=== PATIENT | male | born 1960 | race African-American/Black ===

== ENCOUNTER 2016-04-30 11:30 | Outpatient (CLI) ==
[2016-04-30 13:04] LABS: ALBUMIN 3.5 g/dL (3.4-5.0); ALBUMIN/GLOBULIN RATIO 0.97; ANION GAP 12.2; BILIRUBIN,TOTAL 0.28 mg/dL (0.00-1.20); BUN/CREATININE RATIO 14.84; CALCIUM 9.2 mg/dL (8.2-10.2); CHOL/HDL RATIO 3.3 (4.5-6.4); CREATININE 1.28 mg/dL (0.60-1.10); POTASSIUM 4.2 mmol/L (3.5-5.1); TOTAL PROTEIN 7.1 g/dL (6.4-8.2)
== END 2016-04-30 11:31 | disposition home or self-care (01) ==
LOC: LAB 11:30
PROVIDERS: ATTEND Nurse Practitioner Family
DX: E78.5 Hyperlipidemia, unspecified (principal)
CPT/HCPCS: 36415; 80053; 80061

== ENCOUNTER 2016-05-02 09:25 | Outpatient (CLI) | END 2016-05-02 09:26 | disposition home or self-care (01) | LOC: CAR 09:25 | PROVIDERS: ATTEND Nurse Practitioner Family | DX: I49.9 Cardiac arrhythmia, unspecified (principal) | CPT/HCPCS: 93005; 93010 ==

== ENCOUNTER 2016-11-05 13:00 | Outpatient (CLI) ==
[2016-11-05 13:07] LABS: BASOPHILS % (AUTO) 0.4 % (0.0-3.0); EOSINOPHILS # (AUTO) 0.1 K/ul (0.0-0.7); EOSINOPHILS % (AUTO) 1.8 % (0.0-7.0); HEMATOCRIT 44.2 % (42.0-52.0); HEMOGLOBIN 15.2 g/dl (14.0-18.0); IMMATURE GRANULOCYTE % (AUTO) 0.2 % (0.0-5.0); LYMPHOCYTES # (AUTO) 2.5 K/uL (0.60-3.4); LYMPHOCYTES % (AUTO) 54.3 (10.0-50.0); MEAN CORPUSCULAR HEMOGLOBIN 28.4 pg (27.0-31.0); MEAN CORPUSCULAR HGB CONC 34.4 (31.8-35.4); MEAN CORPUSCULAR VOLUME 82.5 fl (80.0-94.0); MONOCYTES # (AUTO) 0.5 K/uL (0.4-2.0); MONOCYTES % (AUTO) 10.2 (0-10); NEUTROPHILS # (AUTO) 1.5 K/ul (2.0-6.9); NEUTROPHILS % (AUTO) 33.1; PLATELET COUNT 169 10^3/uL (140-440); RED BLOOD COUNT 5.36 10^6/ul (4.70-6.10); WHITE BLOOD COUNT 4.51 K/ul (4.2-10.2)
[2016-11-05 13:55] LABS: ALBUMIN 3.6 g/dL (3.4-5.0); ALBUMIN/GLOBULIN RATIO 0.9; ANION GAP 14.9; BILIRUBIN,TOTAL 0.35 mg/dL (0.00-1.20); BUN/CREATININE RATIO 16.9; CALCIUM 9.9 mg/dL (8.2-10.2); CHOL/HDL RATIO 4.1 (4.5-6.4); CREATININE 1.42 mg/dL (0.60-1.10); POTASSIUM 3.9 mmol/L (3.5-5.1); TOTAL PROTEIN 7.6 g/dL (6.4-8.2)
== END 2016-11-05 13:01 | disposition home or self-care (01) ==
LOC: LAB 13:00
PROVIDERS: ATTEND Nurse Practitioner Family
DX: I49.9 Cardiac arrhythmia, unspecified (principal); E78.5 Hyperlipidemia, unspecified; Z12.5 Encounter for screening for malignant neoplasm of prostate
CPT/HCPCS: 36415; 80053; 80061; 84443; 85025

== ENCOUNTER 2017-05-05 08:46 | Outpatient (CLI) | END 2017-05-05 08:47 | disposition home or self-care (01) | LOC: RHC-LAB 08:46 | PROVIDERS: ATTEND Nurse Practitioner Family | DX: E78.5 Hyperlipidemia, unspecified (principal) | CPT/HCPCS: 36415; 80053; 80061; 84443; 85025 ==

== ENCOUNTER 2017-05-29 09:58 | Outpatient (CLI) | END 2017-05-29 09:59 | disposition home or self-care (01) | LOC: LAB 09:58 | PROVIDERS: ATTEND Internal Medicine | DX: D72.819 Decreased white blood cell count, unspecified (principal) | CPT/HCPCS: 36415; 85025 ==

== ENCOUNTER 2017-06-01 07:33 | Outpatient (CLI) | END 2017-06-01 07:34 | disposition home or self-care (01) | LOC: LAB 07:33 | PROVIDERS: ATTEND Internal Medicine | DX: D72.819 Decreased white blood cell count, unspecified (principal) | CPT/HCPCS: 36415; 85007; 85025 ==

== ENCOUNTER 2017-06-03 07:34 | Outpatient (CLI) | END 2017-06-03 07:35 | disposition home or self-care (01) | LOC: LAB 07:34 | PROVIDERS: ATTEND Internal Medicine | DX: D72.819 Decreased white blood cell count, unspecified (principal) | CPT/HCPCS: 36415; 85025 ==

== ENCOUNTER 2017-06-05 07:31 | Outpatient (CLI) | END 2017-06-05 07:32 | disposition home or self-care (01) | LOC: LAB 07:31 | PROVIDERS: ATTEND Internal Medicine | DX: D72.819 Decreased white blood cell count, unspecified (principal) | CPT/HCPCS: 36415; 85025 ==

== ENCOUNTER 2017-06-08 07:33 | Outpatient (CLI) | END 2017-06-08 07:34 | disposition home or self-care (01) | LOC: LAB 07:33 | PROVIDERS: ATTEND Internal Medicine | DX: D72.819 Decreased white blood cell count, unspecified (principal) | CPT/HCPCS: 36415; 85025 ==

== ENCOUNTER 2017-06-09 07:42 | Outpatient (CLI) | END 2017-06-09 07:43 | disposition home or self-care (01) | LOC: LAB 07:42 | PROVIDERS: ATTEND Internal Medicine | DX: D72.819 Decreased white blood cell count, unspecified (principal) | CPT/HCPCS: 36415; 85025 ==

== ENCOUNTER 2017-06-13 07:18 | Outpatient (CLI) | END 2017-06-13 07:19 | disposition home or self-care (01) | LOC: LAB 07:18 | PROVIDERS: ATTEND Internal Medicine | DX: D72.819 Decreased white blood cell count, unspecified (principal) | CPT/HCPCS: 36415; 85025 ==

== ENCOUNTER 2017-06-15 07:31 | Outpatient (CLI) | END 2017-06-15 07:32 | disposition home or self-care (01) | LOC: LAB 07:31 | PROVIDERS: ATTEND Internal Medicine | DX: D72.819 Decreased white blood cell count, unspecified (principal) | CPT/HCPCS: 36415; 85025 ==

== ENCOUNTER 2017-06-17 07:40 | Outpatient (CLI) | END 2017-06-17 07:41 | disposition home or self-care (01) | LOC: LAB 07:40 | PROVIDERS: ATTEND Internal Medicine | DX: D72.819 Decreased white blood cell count, unspecified (principal) | CPT/HCPCS: 36415; 85025 ==

== ENCOUNTER 2017-06-19 07:24 | Outpatient (CLI) | END 2017-06-19 07:25 | disposition home or self-care (01) | LOC: LAB 07:24 | PROVIDERS: ATTEND Internal Medicine | DX: D72.819 Decreased white blood cell count, unspecified (principal) | CPT/HCPCS: 36415; 85025 ==

== ENCOUNTER 2017-06-22 07:33 | Outpatient (CLI) | END 2017-06-22 07:34 | disposition home or self-care (01) | LOC: LAB 07:33 | PROVIDERS: ATTEND Internal Medicine | DX: D72.819 Decreased white blood cell count, unspecified (principal) | CPT/HCPCS: 36415; 85025 ==

== ENCOUNTER 2017-06-24 07:36 | Outpatient (CLI) | END 2017-06-24 07:37 | disposition home or self-care (01) | LOC: LAB 07:36 | PROVIDERS: ATTEND Internal Medicine | DX: D72.819 Decreased white blood cell count, unspecified (principal) | CPT/HCPCS: 36415; 85025 ==

== ENCOUNTER 2017-06-26 07:37 | Outpatient (CLI) | END 2017-06-26 07:38 | disposition home or self-care (01) | LOC: LAB 07:37 | PROVIDERS: ATTEND Internal Medicine | DX: D72.819 Decreased white blood cell count, unspecified (principal) | CPT/HCPCS: 36415; 85025 ==

== ENCOUNTER 2017-06-29 07:29 | Outpatient (CLI) | END 2017-06-29 07:30 | disposition home or self-care (01) | LOC: LAB 07:29 | PROVIDERS: ATTEND Internal Medicine | DX: D72.819 Decreased white blood cell count, unspecified (principal) | CPT/HCPCS: 36415; 85025 ==

== ENCOUNTER 2017-07-01 06:54 | Outpatient (CLI) | END 2017-07-01 06:55 | disposition home or self-care (01) | LOC: LAB 06:54 | PROVIDERS: ATTEND Internal Medicine | DX: D72.819 Decreased white blood cell count, unspecified (principal) | CPT/HCPCS: 36415; 85025 ==

== ENCOUNTER 2017-07-03 07:08 | Outpatient (CLI) | END 2017-07-03 07:09 | disposition home or self-care (01) | LOC: LAB 07:08 | PROVIDERS: ATTEND Internal Medicine | DX: D72.819 Decreased white blood cell count, unspecified (principal) | CPT/HCPCS: 36415; 85025 ==

== ENCOUNTER 2017-07-06 07:14 | Outpatient (CLI) | END 2017-07-06 07:15 | disposition home or self-care (01) | LOC: LAB 07:14 | PROVIDERS: ATTEND Internal Medicine | DX: D72.819 Decreased white blood cell count, unspecified (principal) | CPT/HCPCS: 36415; 85025 ==

== ENCOUNTER 2017-07-08 06:58 | Outpatient (CLI) | END 2017-07-08 06:59 | disposition home or self-care (01) | LOC: LAB 06:58 | PROVIDERS: ATTEND Internal Medicine | DX: D72.819 Decreased white blood cell count, unspecified (principal) | CPT/HCPCS: 36415; 85025 ==

== ENCOUNTER 2017-07-10 06:47 | Outpatient (CLI) | END 2017-07-10 06:48 | disposition home or self-care (01) | LOC: LAB 06:47 | PROVIDERS: ATTEND Internal Medicine | DX: D72.819 Decreased white blood cell count, unspecified (principal) | CPT/HCPCS: 36415; 85025 ==

== ENCOUNTER 2017-07-13 06:54 | Outpatient (CLI) ==
[2017-07-13 21:21] VITALS: BMI 29.7
== END 2017-07-13 06:55 | disposition home or self-care (01) ==
LOC: LAB 06:54
PROVIDERS: ATTEND Internal Medicine
DX: D72.819 Decreased white blood cell count, unspecified (principal)
CPT/HCPCS: 36415; 85025

== ENCOUNTER 2017-07-13 17:16 | Observation (INO) ==
--- NOTE | 2017-07-13 17:58 | ED.PDOC ---
General ED Provider: Dr. NESTOR GIORDANO Chief Complaint: Palpitations Stated Complaint: palpitation Time Seen by Physician: 17:18 Mode of Arrival: Walk-In Information Source: Patient Exam Limitations: No limitations Primary Care Provider: STIVEN RENTERIA Nursing and Triage Documentation Reviewed and Agree: Yes Reviewed sepsis parameters & appropriate labs ordered?: Yes System Inflammatory Response Syndrome: Not Applicable Sepsis Protocol: For patient's 13 years and over: Temp is 96.8 and below OR 101 and greater Pulse >90 BPM Resp >20/minute Acutely Altered Mental Status Are patient's symptoms suggestive of a new infection, such as: -Pneumonia -Skin, Soft Tissue -Endocarditis -UTI -Bone, Joint Infection -Implantable Device -Acute Abdominal Infection -Wound Infection -Meningitis -Blood Stream Catheter Infection -Unknown System Inflammatory Response Syndrome: Not Applicable Cardiovascular Complaint Exam - Palpitations Complaint/Exam Onset/Duration: 2 hrs ago Symptoms Are: Resolved Timing: Intermittent Initial Severity: Mild Current Severity: None Character: Reports: Irregular Aggravating: Reports: None Alleviating: Reports: None Associated Signs and Symptoms: Reports: Lightheadedness Related History: Similar episode Related Surgical History: Reports: None Pulmonary Embolism Risk Factors: Reports: None Atrial Fibrillation Risk Factors: Reports: None Thyroid Exam: Normal Differential Diagnoses: CAD, Paroxysmal SVT Quality Indicators for AMI: EKG in 10min. Quality Indicators for Cardiac Chest Pain: EKG in 10min. Quality Indicator For Non-Traumatic Chest Pain/Syncope: EKG Performed Review of Systems - Review Of Systems Constitutional: Reports: No symptoms Eyes: Reports: No symptoms Ears, Nose, Mouth, Throat: Reports: No symptoms Respiratory: Reports: No symptoms Cardiac: Reports: Palpitations GI: Reports: No symptoms : Reports: No symptoms Musculoskeletal: Reports: No symptoms Skin: Reports: No symptoms Neurological: Reports: No symptoms Endocrine: Reports: No symptoms Hematologic/Lymphatic: Reports: No symptoms All Other Systems: Reviewed and Negative Past Medical History - Past Medical History Previously Healthy: Yes Endocrine: Reports: Dyslipidemia Cardiovascular: Reports: None Respiratory: Reports: None Hematological: Reports: None Gastrointestinal: Reports: None Genitourinary: Reports: None Neuro/Psych: Reports: None Musculoskeletal: Reports: None Cancer: Reports: None - Surgical History General Surgical History: Reports: None - Family History Family History: Reports: None - Social History Smoking Status: Never smoker Hx Substance Use: No Alcohol Screening: Occasionally Physical Exam - Physical Exam Appearance: Well-appearing, No pain distress, Well-nourished Eyes: DANNI, EOMI, Conjunctiva clear ENT: Ears normal, Nose normal, Oropharynx normal Respiratory: Airway patent, Breath sounds clear, Breath sounds equal, Respirations nonlabored Cardiovascular: RRR, Pulses normal, No rub, No murmur GI/: Soft, Nontender, No masses, Bowel sounds normal, No Organomegaly Musculoskeletal: Normal strength, ROM intact, No edema, No calf tenderness Skin: Warm, Dry, Normal color Neurological: Sensation intact, Motor intact, Reflexes intact, Cranial nerves intact, Alert, Oriented Psychiatric: Affect appropriate, Mood appropriate Interpretation - Landmen Rate: Normal Ectopy: None, PACs - EKG Interpretation Rate: Normal Rhythm: Sinus Ectopy: PACs Re-Evaluation - Re-Evaluation Time of Re-Evaluation: 18:32 (no chest pain) Status: Improved Vital Signs Stable: Yes Pain Level: 0 Appearance: NAD Lungs: Clear Skin: Warm and Dry Neuro: Alert and Oriented X3 CV: RRR Physician Notification - Case Discussed Physician Notified: pmd Time of Notification: 19:00 Critical Care Note - Critical Care Note Total Time (mins): 0 Course - Course Hematology/Chemistry: 07/14/17 02:17 07/14/17 02:17 Orders, Labs, Meds: Lab Review 07/13/17 07/13/17 07/13/17 17:48 17:48 17:48 WBC 4.95 RBC 4.71 Hgb 13.2 L Hct 38.8 L MCV 82.4 MCH 28.0 MCHC 34.0 RDW Coeff of Ramírez 13.2 Plt Count 151 Immature Gran % (Auto) 0.2 Neut % (Auto) 46.1 Lymph % (Auto) 37.4 Preble % (Auto) 14.7 H Eos % (Auto) 1.4 Baso % (Auto) 0.2 Immature Gran # (Auto) 0.0 Neut # (Auto) 2.3 Lymph # (Auto) 1.9 Preble # (Auto) 0.7 Eos # (Auto) 0.1 Baso # (Auto) 0.0 PT 9.6 INR 0.96 APTT 25.2 Sodium 142 Potassium 3.8 Chloride 110 H Carbon Dioxide 21 Anion Gap 14.8 BUN 23 H Creatinine 1.33 H Estimated GFR (MDRD) 67.00 BUN/Creatinine Ratio 17.29 Glucose 88 Calcium 9.2 Total Bilirubin 0.5 AST 29 ALT 19 Alkaline Phosphatase 52 Total Creatine Kinase 691 CK-MB (CK-2) 6.6 H* CK-MB (CK-2) % 0.85083 Troponin I < 0.0100 Total Protein 7.1 Albumin 3.5 Globulin 3.6 Albumin/Globulin Ratio 0.97 TSH 1.142 Free T4 0.85 Orders Category Date Time Status ADMIT OBSERVATION [PLACE PATIENT OBSERVATION] .TO ADMISSION 07/13/17 19:08 Active MEDSURG (MONITORED BED) ECHOCARDIOGRAM 2D-M MODE Routine CARDIO 07/14/17 20:07 Completed EKG-(ED ONLY) Stat CARDIO 07/13/17 17:36 Completed OXYGEN Routine CARDIO 07/13/17 20:06 Completed STRESS ECHO Routine CARDIO 07/14/17 20:07 Completed ACTIVITY .Early Mobilization for VTE Prevention CARE 07/13/17 20:06 Active INTAKE & OUTPUT Q8HR CARE 07/13/17 20:06 Active TELEMETRY MONITORING TELE CARE 07/13/17 19:09 Active VITAL SIGNS Q4HR CARE 07/13/17 20:06 Active CARDIAC DIET DIETARY 07/13/17 Breakfast Completed ED IV/MEDIPORT/POWERPORT .ONCE EMERGENCY 07/13/17 17:38 Active CBC W/ AUTO DIFF DAILY@0600 LAB 07/14/17 02:17 Completed CBC W/ AUTO DIFF Stat LAB 07/13/17 17:48 Completed COMPREHENSIVE METABOLIC PANEL DAILY@0600 LAB 07/14/17 02:17 Completed COMPREHENSIVE METABOLIC PANEL Stat LAB 07/13/17 17:48 Completed CREATINE KINASE Q8H LAB 07/14/17 02:17 Completed CREATINE KINASE Q8H LAB 07/14/17 10:00 Completed CREATINE KINASE Stat LAB 07/13/17 17:48 Completed FREE T4 (FREE THYROXINE) Stat LAB 07/13/17 17:48 Completed PARTIAL THROMBOPLASTIN TIME Stat LAB 07/13/17 17:48 Completed PT WITH INR Stat LAB 07/13/17 17:48 Completed THYROID STIMULATING HORMONE Stat LAB 07/13/17 17:48 Completed TROPONIN I Q8H LAB 07/14/17 02:17 Completed TROPONIN I Q8H LAB 07/14/17 10:00 Completed TROPONIN I Stat LAB 07/13/17 17:48 Completed 0.9 % Sodium Chloride [Saline Flush] MEDS 07/13/17 17:37 Discontinued 1 syr IVF PRN PRN Acetaminophen [Tylenol] MEDS 07/13/17 20:06 Discontinued 650 mg PO Q4H PRN Amoxicillin/Potassium Clav [Augmentin 500-125 mg Tab] MEDS 07/13/17 21:00 Discontinued DOSE tab PO BID Atorvastatin Calcium [Lipitor] MEDS 07/14/17 09:00 Discontinued 10 mg PO DAILY Clindamycin HCl [Clindamycin HCl] MEDS 07/13/17 21:00 Discontinued 300 mg PO TID RESUSCITATION STATUS Routine OTHERS 07/13/17 20:06 Ordered CHEST, 1V AP ONLY Stat RADS 07/13/17 17:37 Completed Medications Discontinued Medications Generic Name Dose Route Start Last Admin Trade Name Freq PRN Reason Stop Dose Admin Acetaminophen 650 mg 07/13/17 20:06 Tylenol PO Q4H PRN Mild Pain Amoxicillin/Clavulanate Potassium tab 07/13/17 21:00 Augmentin 500-125 Mg Tab PO BID ANA MARIA Amoxicillin/Clavulanate Potassium 500 tab 07/13/17 22:00 07/13/17 22:05 Augmentin 500-125 Mg Tab PO Not Given BID ANA MARIA Amoxicillin/Clavulanate Potassium 1 tab 07/13/17 22:30 07/13/17 22:04 Augmentin 500-125 Mg Tab PO Not Given BID ANA MARIA Amoxicillin/Clavulanate Potassium 1 tab 07/14/17 08:00 07/14/17 08:57 Augmentin 500-125 Mg Tab PO 1 tab BIDWM ANA MARIA Administration Atorvastatin Calcium 10 mg 07/14/17 09:00 07/14/17 08:58 Lipitor PO 10 mg DAILY ANA MARIA Administration Clindamycin HCl 300 mg 07/14/17 09:00 07/14/17 16:26 Cleocin PO Not Given TID ANA MARIA Non-Formulary Medication 300 mg 07/13/17 21:00 07/13/17 22:02 Clindamycin Hcl [Clindamycin Hcl] PO Not Given TID ANA MARIA Sodium Chloride 1 syr 07/13/17 17:37 Saline Flush IVF PRN PRN To flush IV Sodium Chloride 1 syr 07/13/17 22:00 07/14/17 13:00 Saline Flush IVF Not Given Q8HR [facility] Vital Signs: Temp Pulse Resp BP Pulse Ox 05/14/18 18:06 84 24 135/102 H 97 07/13/17 17:16 98.6 F 82 20 124/81 96 HIGINIO Risk Score HIGINIO Risk Score: Risk Score Odds of by 30D 0 0.1 (0.1-0.2) 1 0.3 (0.2-0.3) 2 0.4 (0.3-0.5) 3 0.7 (0.6-0.9) 4 1.2 (1.0-1.5) 5 2.2 (1.9-2.6) 6 3.0 (2.5-3.6) 7 4.8 (3.8-6.1) Departure - Departure Time of Disposition: 19:00 Disposition: PLACED OBSERVATION Discharge Problem: Palpitations, Palpitations Condition: Good Pt referred to PMD for follow-up: Yes IPMP verified?: No Allergies/Adverse Reactions: Allergies No Known Allergies Allergy (Verified 07/13/17 17:24) Disposition Discussed With: Patient
[2017-07-13] MEDS ORDERED: TYLENOL PO PRN (20:06)
[2017-07-13] MEDS ORDERED: NON-FORMULARY MEDICATION (Clindamycin Hcl [Clindamycin Hcl] 300 MG) PO SCH (21:00)
[2017-07-13] MEDS ORDERED: AUGMENTIN 500-125 MG TAB PO SCH ×3 (21:00→22:30)
[2017-07-13 21:21] VITALS: BMI 29.7
[2017-07-13] MEDS ORDERED: AUGMENTIN 500-125 MG TAB ONE (21:55)
[2017-07-13] MEDS ORDERED: CLEOCIN ONE (21:55)
--- NOTE | 2017-07-14 07:40 | DI ---
EXAM: Chest one view, frontal view only. HISTORY: Chest pain. COMPARISON: None available. FINDINGS: The heart size is normal. There is no pulmonary vascular congestion. The lungs are clear . No pleural effusion or pneumothorax is seen. No acute osseous abnormality is identified. IMPRESSION: No acute cardiopulmonary process.
[2017-07-14] MEDS ORDERED: AUGMENTIN 500-125 MG TAB PO SCH (08:00)
[2017-07-14] MEDS: CLEOCIN PO SCH ×2 (08:57→16:26)
[2017-07-14] MEDS ORDERED: LIPITOR PO SCH (09:00)
--- NOTE | 2017-07-14 15:22 | STRESSECHO ---
Date of Test: 07/14/17 Ordering Physician: DR. MARY VALENZUELA Occupation:MAINTAINS Reason for Exam: PALPITATIONS, ABNORMAL EKG, HYPERLIPIDEMIA, PAC'S Smoking History: NO Height: 65" Weight: 189" Current Medications: LIPITOR Resting EKG: SINUS RHYTHM/NO ACUTE CHANGES/ PAC'S Target Heart Rate: 138 S-T SEGMENT STAGE MPH/GRADE HEART RATE BPM BLOOD PRESSURE MMHG RHYTHM +/- ELEVATION DEPRESSION SYMPTOMS,COMMENTS AT REST 71 144/92 SR X NONE 1 1.7/10% 105 140/60 SR X NONE 2 2.5/12% 123 140/80 SR X NONE 3 3.4/14% 4 4.2/16% 5 5.0/18% Immediately After 148 140/80 SR X FATIGUE Minutes Post Exercise 5:00 91 122/68 SR X NO COMMENTS Minutes Post Exercise DURATION OF EXERCISE: 7:04 MAXIMUM HEART RATE REACHED: 148 REASON FOR TERMINATION: FATIGUE 98% OXYGEN SATURATION WITH EXERCISE METS 10.0 INTERPRETATION: 1. NO EVIDENCE OF ISCHEMIA BY ST-T WAVE 2. NO CHEST PAIN OR CHEST DISCOMFORT 3. PAC'S AT REST/ LESS PAC'S TO NO PAC'S AT THE EXERCISE LEVEL ACHIEVED 4. BLOOD PRESSURE RESPONSE: NORMAL NORMAL LEFT VENTRICULAR CONTRACTILITY--RESTING AND POST EXERCISE MTDD
[2017-07-14 16:04] VITALS: BP 138/72; TEMP 98
--- NOTE | 2017-07-16 07:36 | ECHO2D ---
Date of Exam: 07/14/17 Ordering Physician: DR. MARY VALENZUELA Room #: [id number] Reason for Echo: PALPITATIONS, ABNORMAL EKG, HYPERLIPIDEMIA M-Mode Normal Adult Results LV Dimensions Normal Adult Results AoV Opening excursions >1.6 >1.6 LVEDD-base- 3.5-5.8 4.7 Ao root dimensions 2.0-3.7 3.2 LVESD-base- 3.1-4.6 L. Atrium dimensions 1.9-3.8 4.1 Post. Wall thickness 0.8-1.1 1.3 IV septum (thickness) 0.7-1.2 1.2 Post. Wall excursion 0.72-1.3 NORMAL Septal motion NORMAL Systolic motion R. Ventricular cavity 1.5-2.0 NORMAL LVEF 60% 53% Paradoxical septal wall motion NORMAL 2-D : 2-D M Mode Echocardiogram was performed using apical four chamber and left parasternal long and short axis views. Mitral, tricuspid and aortic valves appear to be normal. Contractility of the left ventricle seems to be normal, so is the cavity size. Enlarged left atrial cavity. Aortic root appears to be normal. There is no pericardial effusion. There is no thrombus noted in the left ventricular or left aortic cavity. No mitral valve prolapse noted. M-MODE: MV: NORMAL AV: NORMAL TV: NORMAL PV: CHAMBER SIZE: ENLARGED LEFT ATRIAL CAVITY WALL MOTION: NORMAL PERICARDIUM: NORMAL INTERPRETATION: 1. LEFT VENTRICULAR HYPERTROPHY WITH ENLARGED LEFT ATRIAL CAVITY (MILD) 2. NORMAL VALVES 3. NORMAL LEFT VENTRICULAR CONTRACTILITY MTDD
--- NOTE | 2017-07-16 07:40 | ECHOSTRESS ---
Date of Exam: 07/14/17 Ordering Physician: DR. MARY VALENZUELA Reason for Echo: PALPITATIONS, ABNORMAL EKG, HYPERLIPIDEMIA, STRESS TEST--NO ISCHEMIA M-Mode Normal Adult Results LV Dimensions Normal Adult Results AoV Opening excursions >1.6 LVEDD-base- 3.5-5.8 Ao root dimensions 2.0-3.7 LVESD-base- 3.1-4.6 L. Atrium dimensions 1.9-3.8 Post. Wall thickness 0.8-1.1 IV septum (thickness) 0.7-1.2 Post. Wall excursion 0.72-1.3 Septal motion Systolic motion R. Ventricular cavity 1.5-2.0 LVEF 60% Paradoxical septal wall motion 2-D: NORMAL LEFT VENTRICULAR CONTRACTILITY--RESTING AND POST EXERCISE M-MODE: MV: AV: TV: PV: CHAMBER SIZE: WALL MOTION: NORMAL LEFT VENTRICULAR CONTRACTILITY--RESTING AND POST EXERCISE PERICARDIUM: INTERPRETATION: 1. NORMAL LEFT VENTRICULAR CONTRACTILITY--RESTING AND POST EXERCISE MTDD
--- NOTE | 2017-08-27 15:08 | DS ---
DATE OF SERVICE: 07/14/17 FINAL DIAGNOSIS: 1. Chest pain noncardiac 2. Heart palpitation 3. Light headedness 4. Impetigo 5. Dyslipidemia 6. Infrequent beer use DISCHARGE INSTRUCTIONS: Discharge the patient home. MEDICATIONS AT DISCHARGE: Lipitor Clindamycin NEW PRESCRIPTIONS: Augmentin 500mg twice a day DIET INSTRUCTIONS: Cardiac and healthy diet ACTIVITY: As much as tolerated DISEASE SPECIFIC EDUCATION: Coronary artery disease and risk of coronary artery disease Family history been discussed and verbalized understanding Dehydration, working in the sun and increase hydration been discussed and verbalized understanding. HOSPITAL COURSE: Perez Lomeli 56 year old male was seen in the clinic for lesion on the face from Impetigo. The patient was started on the medication but on the examination after further questioning he did mention that he had been having some chest pain and palpitations. The patient was sent to the emergency room for the evaluation. EKG was normal sinus rhythm. CK-MB was elevated to the 6.6 and Troponin normal. BUN 23 and creatinine 1.33. At that time he was admitted to the observation and started on IV fluids. We did get the stress test and echocardiogram. By the next day when the tests were negative the patient didn't have any problems. Heart rate been under control. At that time the patient being discharged home with lifestyle modification changes. Echocardiogram did show the left ventricle hypertrophy and the left atrial enlargement otherwise hospital course was uneventful. TIME SPENT: MORE THAN 65 MINUTES MTDD
--- NOTE | 2017-08-27 15:20 | HP ---
DATE OF SERVICE: 07/13/17 CHIEF COMPLAINT: Palpitations HISTORY OF PRESENT ILLNESS: This is a 56 year old male who was seen in the office and was having some palpitations and chest tightness. EKG showed the irregular heart rate and with the situation the patient was sent to the emergency room for the evaluation. EKG normal sinus rhythm, no ST-T wave changes. At that time the patient been given family history, smoking history and age of 56 the patient was admitted under observation to rule out acute coronary syndrome. REVIEW OF SYSTEMS: CONSTITUTIONAL: No fever, no chills. Weakness and tiredness. HEENT: Normal. ENDOCRINE: No weight gain; no weight loss. CVS: Chest pain and chest tightness on and off. No PND, no orthopnea. No shortness of breath. No PND, no orthopnea. Palpitations. RESPIRATORY: Cough, smoker cough, Congestion. No hemoptysis. GI: No nausea, no vomiting. No abdominal pain. No melena. : No hematuria. No polyuria. MUSCULOSKELETAL: No joint swelling. PSYCHIATRIC: Not anxious. No depression. No suicidal thoughts. No homicidal thoughts. SKIN: Intact, no open lesions. PAST MEDICAL HISTORY: Hypercholesteremia PAST SURGICAL HISTORY: None PERSONAL HISTORY: Alcohol use occasional and smoker. . FAMILY HISTORY: Lung cancer Hypertension Coronary artery disease MEDICATIONS: Lipitor Augmentin Clindamycin ALLERGIES: No known drug allergies PHYSICAL EXAMINATION: V/S: Blood pressure 127/77, respiratory rate 16, heart rate 83, temperature 98.2 and saturation 96. HEENT: Atraumatic, normocephalic. No scleral icterus. Pallor positive. Mucosa dry. Face had a blistery red lesions are present, most likely impetigo. NECK: Supple. No JVD, no bruit. No lymphadenopathy. No thyromegaly. HEART: S1, S2 normal. No murmur. No cyanosis or clubbing. No ascites. LUNGS: Clear to auscultation. No rales or rhonchi. ABDOMEN: Soft, nontender. Bowel sounds are active. No CVA tenderness. No rigidity or guarding. EXTREMITIES: No pedal edema. No cyanosis or clubbing MUSCULOSKELETAL: Normal joints, no swelling. NEUROLOGIC: The patient is SKIN: Intact; no open lesions. LYMPHATIC: No lymph nodes palpable. LABS: WBC 4.95, hgb 13.2, hct 38.8, plt count 151, PT/INR is normal, sodium 142, potassium 3.8, chloride 110, bicarb 21, BUN 23, creatinine 1.33, glucose 88, CK- MB is 6.6 ASSESSMENT: 1. Chest pain 2. Palpitation 3. Elevated CK-MB 4. Impetigo 5. Dyslipidemia 6. Acute renal failure 7. Dehydration PLAN: 1. Admit the patient to the observation 2. Stress test and echocardiogram 3. IV fluids 4. Telemetry monitoring TIME SPENT: MORE THAN 65 minutes KEVIN
== END 2017-07-14 17:04 | disposition home or self-care (01) ==
LOC: ED 17:16 → MEDSURG B 20:18
PROVIDERS: ADMIT Emergency Medicine; ATTEND Emergency Medicine
DX: R00.2 Palpitations (principal); R42 Dizziness and giddiness; R07.89 Other chest pain; L01.00 Impetigo, unspecified; E78.5 Hyperlipidemia, unspecified; N17.9 Acute kidney failure, unspecified; E86.0 Dehydration
CPT/HCPCS: 36415; 80053; 82550; 82553; 84439; 84443; 84484; 85025; 85610; 85730; 93005; 93010; 99217; 99220; 99284

== ENCOUNTER 2017-07-15 07:23 | Outpatient (CLI) | END 2017-07-15 07:24 | disposition home or self-care (01) | LOC: LAB 07:23 | PROVIDERS: ATTEND Internal Medicine | DX: D72.819 Decreased white blood cell count, unspecified (principal) | CPT/HCPCS: 36415; 85025 ==

== ENCOUNTER 2017-07-17 07:27 | Outpatient (CLI) | END 2017-07-17 07:28 | disposition home or self-care (01) | LOC: LAB 07:27 | PROVIDERS: ATTEND Internal Medicine | DX: D72.819 Decreased white blood cell count, unspecified (principal) | CPT/HCPCS: 36415; 85025 ==

== ENCOUNTER 2017-11-11 18:29 | Outpatient (CLI) | END 2017-11-11 18:30 | disposition home or self-care (01) | LOC: LAB 18:29 | PROVIDERS: ATTEND Nurse Practitioner Family | DX: Z00.00 Encounter for general adult medical examination without abnormal findings (principal); E78.5 Hyperlipidemia, unspecified; Z12.5 Encounter for screening for malignant neoplasm of prostate | CPT/HCPCS: 36415; 80053; 80061; 85025 ==

== ENCOUNTER 2018-04-22 17:44 | Outpatient (CLI) | END 2018-04-22 17:45 | disposition home or self-care (01) | LOC: LAB 17:44 | PROVIDERS: ATTEND Nurse Practitioner Family | DX: E78.5 Hyperlipidemia, unspecified (principal) | CPT/HCPCS: 36415; 80053; 80061 ==